=== PATIENT | male | born 1960 | race Caucasian/White ===

== ENCOUNTER 2018-01-25 12:47 | Outpatient (REF) | payer MEDICAID, SELFPAY ==
[2018-01-25 13:51] LABS: ALT 68 U/L (12-78); AST 37 U/L (15-37); Alkaline Phosphatase 76 U/L (46-116); Anion Gap 5.2 mmol/L (3-11); BUN 21 mg/dL (7-18); Bilirubin, Total 0.7 mg/dL (0.2-1.0); CO2 29.8 mmol/L (21.0-32.0); CREATININE 1.45 mg/dL (0.70-1.30); Calcium 8.6 mg/dL (8.5-10.1); Chloride 101 mmol/L (98-107); Cholesterol 206 mg/dL (50-200); Estimated GFR 50.16 (mL/min/1.73m2); Glucose 105 mg/dL (70-100); HDL Cholesterol 64 mg/dL (40-60); LDL CHOLESTEROL 126 mg/dL (<100); Magnesium 2.1 mg/dL (1.8-2.4); Potassium 4.7 mmol/L (3.5-5.1); Sodium 136 mmol/L (136-145); Triglyceride 107 mg/dL (30-150); Vitamin B12 695 pg/mL (193-986)
[2018-01-28 13:05] LABS: Hepatitis C Ab w Rflx HCV PCR Equivocal (NEGAT)
[2018-01-29 15:43] LABS: HCV RNA Detection Quantitative Undetected IU/mL (UNDECT)
== END 2018-01-25 13:07 ==
LOC: NCHCN 12:47
PROVIDERS: PCP Family Medicine; Visit Provider Family Medicine
DX: Z13.220 Encounter for screening for lipoid disorders (principal); Z11.59 Encounter for screening for other viral diseases; Z01.84 Encounter for antibody response examination; K21.9 Gastro-esophageal reflux disease without esophagitis; Z13.228 Encounter for screening for other metabolic disorders
CPT/HCPCS: 80053; 80061; 83721; 86803; 82607; 83735; 87522

== ENCOUNTER 2018-03-04 12:29 | Outpatient (REF) | payer MEDICAID, SELFPAY ==
[2018-03-04 19:00] LABS: PROTEIN 11.5 mg/dL
[2018-03-04 19:09] LABS: COMMENT (LAB VIEW ONLY) 104.51 mg/dL; Prot/Crea Ur Ratio 0.11
== END 2018-03-04 12:49 ==
LOC: NCHCN 12:29
PROVIDERS: PCP Family Medicine; Visit Provider Family Medicine
DX: N28.9 Disorder of kidney and ureter, unspecified (principal)
CPT/HCPCS: 82565; 84156

== ENCOUNTER 2019-04-11 13:45 | Outpatient (REF) | payer BC, SELFPAY ==
[2019-04-11 14:45] LABS: Anion Gap 9.1 mmol/L (3-11); BUN 18 mg/dL (7-18); CO2 27.9 mmol/L (21.0-32.0); CREATININE 1.28 mg/dL (0.70-1.30); Calcium 9.2 mg/dL (8.5-10.1); Chloride 102 mmol/L (98-107); Estimated GFR 57.72 (mL/min/1.73m2); Glucose 111 mg/dL (74-106); PROTEIN 16.3 mg/dL; Potassium 4.9 mmol/L (3.5-5.1); Sodium 139 mmol/L (136-145)
[2019-04-11 14:59] LABS: COMMENT (LAB VIEW ONLY) 105.62 mg/dL; Prot/Crea Ur Ratio 0.15
== END 2019-04-11 14:05 ==
LOC: NCHCN 13:45
PROVIDERS: PCP Family Medicine; Visit Provider Family Medicine
DX: Z00.00 Encounter for general adult medical examination without abnormal findings (principal); I10 Essential (primary) hypertension; R73.01 Impaired fasting glucose; N28.9 Disorder of kidney and ureter, unspecified
CPT/HCPCS: 80048; 82565; 84156

== ENCOUNTER 2020-05-06 20:25 | Outpatient (REF) | payer BC, SELFPAY ==
[2020-05-06 18:41] LABS: BUN 24 mg/dL (7-18); CREATININE 1.47 mg/dL (0.70-1.30); Calcium 9.1 mg/dL (8.5-10.1); Chloride 103 mmol/L (98-107); Estimated GFR 49.03 (mL/min/1.73m2); Glucose 95 mg/dL (74-106); Potassium 4.4 mmol/L (3.5-5.1); Sodium 138 mmol/L (136-145)
== END 2020-05-06 20:45 ==
LOC: NCHCN 20:25
PROVIDERS: PCP Family Medicine; Visit Provider Family Medicine
DX: I10 Essential (primary) hypertension (principal); N28.9 Disorder of kidney and ureter, unspecified
CPT/HCPCS: 80048

== ENCOUNTER 2021-07-25 10:23 | Outpatient (REF) | payer BC, SELFPAY ==
[2021-07-25 17:43] LABS: ALT 55 U/L (16-63); AST 31 U/L (15-37); Albumin 4.4 g/dL (3.4-5.0); Alkaline Phosphatase 86 U/L (46-116); Anion Gap 10.3 mmol/L (3-11); BUN 18 mg/dL (7-18); Bilirubin, Total 0.9 mg/dL (0.2-1.0); CO2 24.7 mmol/L (21.0-32.0); CREATININE 1.3 mg/dL (0.70-1.30); Calculated LDL 159 mg/dL (<100); Chloride 102 mmol/L (98-107); Cholesterol 254 mg/dL (<200); Estimated GFR 56.12 (mL/min/1.73m2); Glucose 106 mg/dL (74-106); HDL Cholesterol 58 mg/dL (40-60); Potassium 4.4 mmol/L (3.5-5.1); Sodium 137 mmol/L (136-145); Total Protein 7.7 g/dL (6.4-8.2); Triglyceride 189 mg/dL (<150)
[2021-07-26 09:46] LABS: PSA, Screening 1.3 ng/mL (0.0-4.5)
== END 2021-07-25 10:24 | disposition home or self-care (01) ==
LOC: NCHCN 10:23
PROVIDERS: PCP Family Medicine; Visit Provider Family Medicine
DX: Z00.00 Encounter for general adult medical examination without abnormal findings (principal); I10 Essential (primary) hypertension; N28.9 Disorder of kidney and ureter, unspecified; Z12.5 Encounter for screening for malignant neoplasm of prostate
CPT/HCPCS: 80053; 80061; 84153

== ENCOUNTER 2021-08-02 14:20 | Outpatient (CLI) | payer BC, SELFPAY ==
--- NOTE | 2021-08-02 | DI.RAD_ITS ---
Exam(s) XR KNEE RT 3V AP,LAT,MICHELLE EXAM: XR KNEE RT 3V AP,LAT,MICHELLE CLINICAL HISTORY: RT KNEE PAIN, SWELLING, ? OA. TECHNIQUE: 2D digital imaging was performed of the right knee. Three views obtained. AP, PA tunnel and lateral views were obtained. COMPARISON: No priors for comparison. FINDINGS: BONES: No acute fracture is present. No bony destructive lesion is seen. JOINTS: There is mild narrowing in the medial femoral tibial joint space. Periarticular spurring is seen in both medial lateral femoral tibial joints. There is a small suprapatellar joint effusion. SOFT TISSUE: Normal. IMPRESSION: Mild degenerative changes of the right knee. DATA REPOSITORY: RADIATION DOSE DELIVERED:
== END 2021-08-02 14:40 ==
PROVIDERS: PCP Family Medicine; Visit Provider Family Medicine
DX: M25.561 Pain in right knee (principal); M25.461 Effusion, right knee; M17.11 Unilateral primary osteoarthritis, right knee
CPT/HCPCS: 73562

== ENCOUNTER 2022-05-15 01:20 | Outpatient (CLI) | payer BC, SELFPAY ==
--- NOTE | 2022-05-15 09:45 | DI.MRI_ITS ---
Exam(s) MR LUMBAR SPINE WO EXAM: MR LUMBAR SPINE WO CLINICAL HISTORY: DJD, M47.896; 4 MOS WORSENING LBP AFFECTING FUNCTION,MINIMAL RESPONSE TO PT. TECHNIQUE: Multiplanar multisequence MRI of the Lumbar spine was performed. COMPARISON: No exams were available for comparison FINDINGS: Bones: The last intervertebral disc space is designated the L5/S1 level for the numbering purpose of this examination. The vertebral body heights are well maintained. Alignment is satisfactory. There are endplate degenerative signal changes at multiple levels of the lumbar spine, particularly at L5-S 1. There is a hemangioma or fatty rest in the T12 vertebral body. Cord: The conus tip ends at the L1 level. It is of normal size and signal intensity. T12-L1: No disc herniations or bulges are present. No central spinal canal or neural foraminal stenos is. L1-2: No disc herniations or bulges are present. No central spinal canal or neural foraminal stenosis . L2-3: No disc herniations or bulges are present. No central spinal canal or neural foraminal stenosis . L3-4: No disc herniations or bulges are present. Mild facet hypertrophy is present. No significant c entral spinal canal stenosis is seen. There is no neural foraminal stenosis. L4-5: There are degenerative changes of the facets and hypertrophy of the ligamentum flavum. There i s a mild diffuse disc bulge. There is mild narrowing of the central spinal canal. No significant ne ural foraminal stenosis is present. L5-S1: No focal disc herniation. There are degenerative changes of the facets. No significant centr al spinal canal stenosis is present. There is mild narrowing of the left neural foramen. No signifi cant right neural foraminal stenosis is present. Soft tissues: The visualized SI joints and sacrum are well maintained. The paraspinal soft tissues ar e unremarkable. IMPRESSION: Multilevel degenerative changes in the lumbar spine resulting in central spinal canal and neural fora neeru stenosis as described above. DATA REPOSITORY:
== END 2022-05-15 01:40 ==
LOC: DI 01:21
PROVIDERS: PCP Family Medicine; Visit Provider Family Medicine
DX: M47.816 Spondylosis without myelopathy or radiculopathy, lumbar region (principal); M48.061 Spinal stenosis, lumbar region without neurogenic claudication
CPT/HCPCS: 72148

== ENCOUNTER 2022-09-05 17:47 | Outpatient (REF) | payer BC, SELFPAY ==
[2022-09-05 15:36] LABS: HCT 43.9 % (40.0-50.0); HGB 14.8 g/dL (13.5-17.5); MCH 31.7 pg (27.0-33.0); MCHC 33.7 % (32.0-36.0); MCV 94 fL (80-95); MPV 10.5 fL (8.0-11.0); Platelet Count 238 10^3/uL (130-400); RBC 4.67 10^6/uL (4.36-5.78); RDW 12.9 % (11.8-14.1); RDW-SD 44.6 fL; WBC 6.65 10^3/uL (4.4-10.8)
[2022-09-05 16:15] LABS: ALT 57 U/L (16-63); AST 32 U/L (15-37); Albumin 4.1 g/dL (3.4-5.0); Alkaline Phosphatase 86 U/L (46-116); Anion Gap 7.5 mmol/L (3-11); BUN 18 mg/dL (7-18); Bilirubin, Total 0.7 mg/dL (0.2-1.0); CO2 27.5 mmol/L (21.0-32.0); CREATININE 1.1 mg/dL (0.70-1.30); Calcium 9.1 mg/dL (8.5-10.1); Calculated LDL 131 mg/dL (<100); Chloride 104 mmol/L (98-107); Cholesterol 221 mg/dL (<200); Glucose 121 mg/dL (74-106); HDL Cholesterol 65 mg/dL (40-60); Potassium 4.9 mmol/L (3.5-5.1); Sodium 139 mmol/L (136-145); Total Protein 7.3 g/dL (6.4-8.2); Triglyceride 127 mg/dL (<150)
== END 2022-09-05 17:48 | disposition home or self-care (01) ==
LOC: NCHCN 17:47
PROVIDERS: PCP Family Medicine; Visit Provider Family Medicine
DX: F10.10 Alcohol abuse, uncomplicated (principal); I10 Essential (primary) hypertension; E78.5 Hyperlipidemia, unspecified
CPT/HCPCS: 80053; 80061; 85027

== ENCOUNTER 2023-09-18 11:18 | Outpatient (REF) | payer BC, SELFPAY ==
[2023-09-18 15:41] LABS: Anion Gap 10.3 mmol/L (3-11); BUN 19 mg/dL (7-18); CO2 25.7 mmol/L (21.0-32.0); CREATININE 1.2 mg/dL (0.70-1.30); Chloride 104 mmol/L (98-107); Estimated GFR 67.95 (mL/min/1.73m2); Glucose 128 mg/dL (74-106); Potassium 4.6 mmol/L (3.5-5.1); Sodium 140 mmol/L (136-145)
== END 2023-09-18 11:19 | disposition home or self-care (01) ==
LOC: NCHCN 11:18
PROVIDERS: PCP Family Medicine; Visit Provider Student in an Organized Health Care Education/Training Program
DX: Z13.1 Encounter for screening for diabetes mellitus (principal); I10 Essential (primary) hypertension
CPT/HCPCS: 80048; 83036

== ENCOUNTER 2024-01-04 10:19 | Day surgery (SDC) | payer BC, SELFPAY ==
--- NOTE | 2024-01-03 21:05 | W.COLOREPORT ---
Date of service: 01/04/24 Time of Service: 14:00 Colonoscopy Report Date of procedure: 01/04/24 Pre-op diagnosis general: CRC screening Surgeon: Estefani Gusman Anesthesia Type: General:No Airway Complications: None Disposition: same day Prep: Miralax/Dulcolax Retraction Time: 15 Procedure Description: After informed consent was obtained, explaining risks of the procedure, including but not limits to: bleeding, infections, complications of anesthesia, perforations (which may require antibiotics and /or surgery and stay in the hospital), and abdominal pain/cramping. The patient was taken to the procedure room and placed in a left decubitous position. Monitors were applied and a time out was done. The patients name, date of , procedure, allergies to medications and metal in their body was reviewed. The patient was then sedated. Once sedated and comfortable a rectal exam was done. External exam was normal. Internal exam revealed a normal sphincter tone and no palpable masses. The prostate w/out masses. The previously lubricated Olympus scope was then introduced (see RN notes for scope number) and retrofelexed. Grade II internal hemorrhoids x2 columns were identified. The scope was then advanced to the cecum without difficulty. The TI and appendiceal orifice were identified. The scope was then slowly retracted over 15 minutes back into the rectum. Polyps: none. Diverticula: none . The mucosa is pink and healthy w/ a normal vascular pattern. The scope was removed, and the patient was woken up and taken back to Same day surgery in stable condition. The patient tolerated the procedure well and there were no immediate complications. Follow up: The patient should follow up in 10 years, unless they develop changes in bowel habits or other new gastrointestinal complaints. [facility] Bowel Prep Phoenix Bowel Prep Right Colon: 3 Left Colon: 3 Transverse Colon: 3 Total Score: 9
--- NOTE | 2024-01-03 21:06 | PDOC.DSDIS_ITS ---
Date of service: 01/04/24 Time of Service: 14:03 Discharge Plan Disposition Patient Disposition: Home Condition: Good Discharge Details Reason For Visit: CRC screening Attending Provider: Estefani Gusman Primary Care Provider: Parag Peña Home Meds and New Rx's Prescriptions: Continued atorvastatin 20 mg tablet 20 mg PO QHS omega 2-kpl-bru-fish oil [Fish Oil] 300-1,000 mg capsule 1 cap PO DAILY glucosamine HCl 1,500 mg tablet 1,500 mg PO DAILY Rx Instructions: administer with a meal meloxicam 15 mg tablet 15 mg PO DAILY Patient Comments: 01/04/24: pt reports not taking. FS RN olmesartan 20 mg tablet 20 mg PO HS tadalafil 10 mg tablet 10 mg PO DAILY PRN Rx Instructions: administer approximately 30min before sexual activity; do not use more than 1 dose per 24hrs vitamin B complex Capsule 1 cap PO DAILY cyclobenzaprine 10 mg tablet 10 mg PO HS PRN omeprazole 20 mg capsule,delayed release(DR/EC) 20 mg PO DAILY Patient Comments: TAKE ONE CAPSULE BY MOUTH EVERY DAY Discontinued polyethylene glycol 3350 17 gram/dose powder 238 g PO ONCE Qty: 238 0RF Rx Instructions: take per colonoscopy instructions bisacodyl [Dulcolax (bisacodyl)] 5 mg tablet,delayed release (DR/EC) 5 mg PO ONCE Qty: 4 0RF Rx Instructions: take per colonoscopy instructions Discharge Instructions Additional Instructions: [facility] Colonoscopy Post- Op Instructions Instructions for Everyone who is given Anesthesia: For your safety, please do the following for the next twenty-four (24) hours: *Do Not operate a motor vehicle (car, truck, motorcycle, etc.) *Do Not drink alcoholic beverages or use any recreational drugs for the first 24 hours or while taking pain medications. The medications in your body may have a reaction that can be dangerous. *Do Not make any important decisions or sign any important papers. Findings: Internal hemorrhoids. Make sure you are not straining to move your bowels. If you find you have problems with constipation on a regular basis, then we recommend you start a fiber product such as Metamucil daily. You want to make sure you are moving your bowels on a regular basis and not straining. Follow up: Repeat colonoscopy in 10 years time 1. No lifting over 20 pounds or strenuous activity for the first 24 hours after your procedure. After 24 hours there are no restrictions on your activity but you may feel fatigued for a few days. 2. After you arrive home you may have a light meal and return to your normal diet as you can tolerate it without feeling sick to your stomach. 3. You may have a bloated, gaseous feeling in your belly (abdomen) after a colonoscopy. Passing gas and belching will help. Walking or lying down on your left side with your knees flexed may relieve the discomfort. Call the office at [phone] (Office) or [phone] (Hospital) right away if you notice any of the following: a.Vomiting of blood or ?coffee ground stools?. b.Rectal bleeding 1Tbsp, blood clots or continuous bleeding. c.Severe belly (abdominal) pain. d.A hard distended belly (abdomen) and an inability to pass gas. 4. Please don?t expect to have a normal BM (bowel movement) for 2-3 days after your procedure. 5. If there are questions regarding the findings of your procedure, please contact your doctor 6. If you are unable to contact your doctor with a problem, contact the hospital at [phone]. 7. Continue all your regular medications unless directed otherwise. I understand the above instructions and have no questions. Signature of Patient or Adult Escort Name of Responsible Adult Escort Signature of Nurse Date/Time Stand Alone Forms: Anesthesia Discharge , Kathryn Nation (DSU) Activity:: see above Diet:: see above Discharge Orders Discharge Orders: Discharge Order (Routine); Ordered 01/04/24 Ordered By: Estefani Gusman DS: Diagnosis Discharge Diagnosis (1) Encounter for screening colonoscopy: Status: Acute Asessment and Plan: The patient is seen and examined after their colonoscopy.? The patient has been able to pass gas.? They are not having abdominal pain.? They have been able to tolerate liquids and a snack.? They do not have any nausea or vomiting.? They are not having any chest pain or shortness of breath.??? They are not having any rectal bleeding. Their vital signs have been stable-see nursing notes. We discussed findings during their colonoscopy, and any biopsies that were done/polyps that were removed. The patient will be sent a letter with any biopsy results, and when to repeat the colonoscopy.-see discharge instructions. Patient was given explicit instructions to follow-up regarding colonoscopy-refer to discharge instructions.? We reviewed resumption of medications. Patient verbalized understanding and discharged in stable and satisfactory condition- See nursing notes. (2) Alcohol abuse: (3) Essential hypertension: (4) Hyperlipidemia: (5) Obesity: (6) GERD without esophagitis: (7) Internal hemorrhoid: Status: Acute
[2024-01-04 10:45] VITALS: BP 141/88; PULSE 63; RESP 16; TEMP 36; O2SAT 98
[2024-01-04] MEDS: Lactated Ringers 1,000 ML 80 ML IV (11:01)
--- NOTE | 2024-01-04 11:58 | W.ANESPRE ---
General Info Date of Service Date Performed: 01/04/24 Height: 5 ft 10.5 in Weight: 128.6 kg Body Mass Index (BMI): 40.1 Surgical Procedure: Operation Date: 01/04/24 11:35 Proposed Procedure Side Surgeon braden Gusman, DO Meds Allergies and Home Medications Allergies Allergy/AdvReac Type Severity Reaction Status Date / Time No Known Allergies Allergy Verified 01/04/24 10:38 Home Medication ?Medication ?Instructions ?Recorded atorvastatin 20 mg tablet 20 mg PO QHS 11/28/23 glucosamine HCl 1,500 mg tablet 1,500 mg PO DAILY 11/28/23 meloxicam 15 mg tablet 15 mg PO DAILY 11/28/23 olmesartan 20 mg tablet 20 mg PO HS 11/28/23 omega 9-frb-qaj-fish oil 300 1 cap PO DAILY 11/28/23 mg-1,000 mg capsule (Fish Oil) tadalafil 10 mg tablet 10 mg PO DAILY PRN 11/28/23 vitamin B complex 1 cap PO DAILY 11/28/23 cyclobenzaprine 10 mg tablet 10 mg PO HS PRN 12/17/23 omeprazole 20 mg capsule,delayed 20 mg PO DAILY 01/02/24 release Current Visit Medications: Current Medications Generic Name Dose Route Start Last Admin Trade Name Freq PRN Reason Stop Dose Admin Hyoscyamine Sulfate 0.125 mg 01/04/24 00:20 Hyoscyamine 0.125 Mg Sl/Oral/Chew SL 02/03/24 00:19 DIRECTED PRN Ringer's Solution 1,000 mls @ 80 mls/hr 01/04/24 06:00 01/04/24 11:01 IV 01/04/24 23:59 80 mls/hr INFUSION ROLANDO Administration IV Miscellaneous Supplies 1 each 01/04/24 06:00 Iv Access IV 01/04/24 23:59 DIRECTED ROLANDO Ondansetron HCl 4 mg 01/04/24 00:20 Ondansetron 4 Mg/2 Ml Vial IVP 02/03/24 00:19 Q4H PRN PRN Nausea / Vomiting Sodium Chloride 0 ml 01/04/24 06:00 Normal Saline Flush 10 Ml Syr IV 01/04/24 23:59 PRN PRN Sodium Chloride 0 ml 01/04/24 06:00 Normal Saline 10 Ml Vial IJ 01/04/24 23:59 DIRECTED PRN Sterile Water 0 ml 01/04/24 06:00 Water,Injection,Sterile 10 Ml Vial IJ 01/04/24 23:59 DIRECTED PRN PFSH Active Problems Active Problems: Problem Status Onset Code Encounter for screening colonoscopy Acute Z12.11 Renal insufficiency Chronic N28.9 Medical History Medical History Pain, joint, knee, right Allergy to food Lumbar spondylosis GERD without esophagitis Essential hypertension Hearing loss in left ear Alcohol intake above recommended sensible limits Alcohol abuse Erectile dysfunction Obesity Hyperlipidemia Tobacco Smoking/Tobacco Use Status: Never Alcohol Alcohol Intake: current Alcohol intake frequency: 3 or more drinks per day Alcohol type: beer Substance Use Substance use: Never Substance use type: does not use Vital Signs and Lab Results Vital Signs Most Recent Vital Signs in EMR: Most Recent Vital Signs Temp Pulse Resp BP Pulse Ox 36 C L 63 16 141/88 H 98 01/04/24 10:45 01/04/24 10:45 01/04/24 10:45 01/04/24 10:45 01/04/24 10:45 Lab Results Blood Type / Crossmatch: No Data to Display Complete Blood Count: No Data to Display Complete Metabolic Panel: No Data to Display Liver Function Panel: No Data to Display Coagulation Panel: No Data to Display Cardiac Panel: No Data to Display Arterial Blood Gas: No Data to Display Venous Blood Gas: No Data to Display Pancreas Panel: No Data to Display Thyroid Panel: No Data to Display Infectious Disease: No Data to Display Blood Cultures: No Data to Display Toxicology Panel: No Data to Display Anesthesia Assessment and Plan Anesthesia History Personal History: No History of Anesthesia Complications Family History: No Family History of Anesthesia Complications Exercise Tolerance Exercise Tolerance: Metabolic Equivalents>4 Pertinent Negatives Pertinent Negatives: No Symptoms of GERD, No Major Cardiovascular Symptoms or Complaints, No Major Pulmonary Symptoms or Complaints and No History of CVA/TIA Cardiac & Pulmonary Exam Cardiac Exam: Normal S1/S2 Heart Sounds Pulmonary Exam: Clear Bilateral Breath Sounds Implantable Cardiac Device Does patient have a Pacemaker or an ICD?: No Airway Exam Known Difficult Airway: No Mallampati Class: 1 Mouth Opening: Normal (> 3cm) Thyromental Distance: Greater than 3 cm Neck Range of Motion: Full ROM Neck Circumference: Normal Teeth Condition: Normal Dentition ASA Classification ASA Score: ASA 3 Emergency Case?: No NPO Status NPO Status: NPO Clears >2 hours, Solids >8 hours Anesthesia Plan Resuscitation Status: Full Code Anesthesia Technique: General Anesthesia Airway Planned: Natural Airway Monitors Used: Standard Monitors
[2024-01-04 11:59] VITALS: BMI 40.1
[2024-01-04 13:17] VITALS: BP 108/72; PULSE 88; RESP 16; TEMP 36.2; O2SAT 94
--- NOTE | 2024-01-04 13:43 | W.ANESPOSTOP ---
Postoperative Evaluation Date, Time and Location Date Performed: 01/04/24 Time Performed: 13:35 Patient Location: Day Surgery Unit Vital Signs Most Recent Imported Vital Signs: Most Recent Vital Signs Temp Pulse Resp BP Pulse Ox 36.2 C L 88 16 108/72 94 01/04/24 13:17 01/04/24 13:17 01/04/24 13:17 01/04/24 13:17 01/04/24 13:17 Pain Score Most Recent Pain Score: Most Recent Pain Score Pain Level 0 01/04/24 13:17 Assessment Mental Status: Awake (Alert & Oriented to Patient Baseline) Airway and Respiratory Function: Patent airway with normal (patient baseline) respiratory exam Cardiovascular Function: Hemodynamically Stable Hydration Status: Adequately Hydrated Nausea & Vomiting: No Nausea or Vomiting Pain: Pt. Denies Any Pain Peripheral Nerve Block: Patient did not receive a nerve block
[2024-01-04 13:52] VITALS: BP 121/84; PULSE 70; RESP 16; TEMP 36.2; O2SAT 97
== END 2024-01-04 14:17 | disposition home or self-care (01) ==
LOC: SUR 10:20
PROVIDERS: PCP Family Medicine; Visit Provider Surgery
PROC: 0DJD8ZZ Inspection of Lower Intestinal Tract, Via Natural or Artificial Opening Endoscopic (ICD-10-PCS; CPT 45378; principal; 2024-01-04 11:30)
DX: Z12.11 Encounter for screening for malignant neoplasm of colon (principal); K64.8 Other hemorrhoids
CPT/HCPCS: 45378; J2704

== ENCOUNTER 2024-02-06 08:28 | Emergency (ER) | payer BC, SELFPAY ==
[2024-02-06] VITALS (38 sets, daily range): BP systolic 137–193; BP diastolic 78–101; PULSE 85–109; RESP 10–32; TEMP 36.8–37.8; O2SAT 93–98
--- NOTE | 2024-02-06 08:50 | W.ED.GENAD ---
Discharge Plan Disposition Patient Disposition: Home Condition: Stable Discharge Details Clinical Impression: Diarrhea Primary Care Provider: Parag Peña ED Provider: Neri Kramer Home Meds and New Rx's Prescriptions: New azithromycin 500 mg tablet 500 mg PO DAILY 5 Days Qty: 5 0RF Continued atorvastatin 20 mg tablet 20 mg PO QHS omega 7-ngg-ydd-fish oil [Fish Oil] 300-1,000 mg capsule 1 cap PO DAILY glucosamine HCl 1,500 mg tablet 1,500 mg PO DAILY Rx Instructions: administer with a meal meloxicam 15 mg tablet 15 mg PO DAILY Patient Comments: 01/04/24: pt reports not taking. FS RN olmesartan 20 mg tablet 20 mg PO HS tadalafil 10 mg tablet 10 mg PO DAILY PRN Rx Instructions: administer approximately 30min before sexual activity; do not use more than 1 dose per 24hrs vitamin B complex Capsule 1 cap PO DAILY cyclobenzaprine 10 mg tablet 10 mg PO HS PRN omeprazole 20 mg capsule,delayed release(DR/EC) 20 mg PO DAILY Patient Comments: TAKE ONE CAPSULE BY MOUTH EVERY DAY Discharge Instructions Instructions: Azithromycin (Systemic), Diarrhea, Adult ED Additional Instructions: You were seen in the ED for your ongoing diarrhea- your labs are reassuring for no sepsis. You had mildly low magnesium, which is expected from GI losses of diarrhea. Please stay well hydrated. I am sending you an empiric antibiotic, azithromycin for infectious diarrhea. Your C. diff study is negative. The CT shows possible underdistention or completely empty colon vs what's called onela-colitis which can be a marker of inflammatory bowel disease or ulcerative colitis, which if you had- should've been picked up on your recent colonoscopy. You have elevated inflammatory markers of CRP/ESR. I think this is all due to generalized diarrhea and not these possible underlying conditions- but I want you to have your labs of CRP/ESR repeated after your antibiotic treatment- ordered as a outpatient by your PCP- please contact their office to have them schedule these lab draws in about a week, and talk to your PCP for possible need for repeat colonoscopy. Please return to ED for any inability to tolerate PO intake, dizziness, bloody diarrhea, severe increasing abdominal pain. Referrals: Parag Peña [Primary Care Provider] - HPI General Date/Time Provider Initiated Documentation: 02/06/24 08:45. HPI Narrative: 63 year-old male presents to ED today by POV/ambulating with a chief complaint of diarrhea every 2 hours for over a week, occasional mild nausea without vomiting, and sudden attacks of lower abdominal severe cramping. Quality described as cramping, liquid diarrhea, no radiation to recent antibiotic use, fever, vomiting, black/bloody diarrhea, cough, patient endorses less urine than usual- feels dehydrated. Severity is described as 8/10. Palliating factors include nothing. Provoking factors include nothing specific, has not caught any GI symptoms. Events leading up to the incident/Associated Symptoms: Patient had a colonoscopy a month ago with normal findings. Patient not anticoagulated. Related Data Home Medications ?Medication ?Instructions ?Recorded ?Confirmed atorvastatin 20 mg tablet 20 mg PO QHS 11/28/23 02/06/24 glucosamine HCl 1,500 mg tablet 1,500 mg PO DAILY 11/28/23 02/06/24 meloxicam 15 mg tablet 15 mg PO DAILY 11/28/23 02/06/24 olmesartan 20 mg tablet 20 mg PO HS 11/28/23 02/06/24 omega 3-peu-fjh-fish oil 300 1 cap PO DAILY 11/28/23 02/06/24 mg-1,000 mg capsule (Fish Oil) tadalafil 10 mg tablet 10 mg PO DAILY PRN 11/28/23 02/06/24 vitamin B complex 1 cap PO DAILY 11/28/23 02/06/24 cyclobenzaprine 10 mg tablet 10 mg PO HS PRN 12/17/23 02/06/24 omeprazole 20 mg capsule,delayed 20 mg PO DAILY 01/02/24 02/06/24 release azithromycin 500 mg tablet 500 mg PO DAILY 5 days #5 tabs 02/06/24 Previous Rx's ?Medication ?Instructions ?Recorded azithromycin 500 mg tablet 500 mg PO DAILY 5 days #5 tabs 02/06/24 Allergies Allergy/AdvReac Type Severity Reaction Status Date / Time No Known Allergies Allergy Verified 02/06/24 08:33 General Stated Complaint: Nausea/Vomit/Diar [place]RA[place]: 3 Review of Systems All systems reviewed & are unremarkable except as noted in HPI and below Exam Narrative Exam Narrative: GENERAL APPEARANCE: Well-nourished, non-toxic, awake and alert, atraumatic, no acute distress. SKIN: Warm, pink, dry, intact, without rashes/lesions/ulcerations. HEAD: Normocephalic, atraumatic, normal hair distribution for gender/age. EYES: Normal conjunctiva, no exudates on lids/lashes. ENT: Nares patent, no circumoral cyanosis, no facial swelling NECK: Supple, trachea midline, painless cervical ROM. LUNGS/CHEST: Lungs CTA bilaterally, non-labored respirations, normal A/P diameter, symmetrical expansion, no chest wall deformity HEART (CV/PV): Regular rate and rhythm without murmur, no peripheral edema, no JVD. ABDOMEN: Soft, non-distended, no guarding. MSK: Normal ROM, no swelling/deformity to bilateral UEs or LEs, moving all extremities without weakness, no cyanosis, spine midline without tenderness, normal curvature. NEURO: Mental Status AAOx4 - alert to person, place, time, events No facial droop, no forehead involvement. Motor: No focal weakness - strength 5/5 in bilateral UEs and LEs, proximal and distal, symmetric. Sensory: sensation intact to light touch globally. Gait normal: patient ambulated without ataxia into ED room. PSYCH: euthymic, cooperative, pleasant, appropriate speech Course Vital Signs Vital signs: Vital Signs Temperature 36.8 C 02/06/24 08:34 Pulse 102 H 02/06/24 08:34 Respiratory Rate 16 02/06/24 08:34 Blood Pressure 137/80 02/06/24 08:34 Pulse Oximetry 96 02/06/24 08:34 Temperature 36.8 C 02/06/24 08:37 Temperature Source Temporal Artery Scan 02/06/24 08:37 Pulse 98 H 02/06/24 08:37 Respiratory Rate 16 02/06/24 08:37 Respiratory Effort Normal, Non-Labored 02/06/24 08:37 Blood Pressure 137/80 02/06/24 08:37 Blood Pressure Position Sitting 02/06/24 08:37 Pulse Oximetry 96 02/06/24 08:37 Oxygen Delivery Method Room Air 02/06/24 08:37 Oxygen Flow Rate 0 02/06/24 08:34 Pain Level 6 02/06/24 08:37 Medical Decision Making This dictation utilizes [id number] dictation software and may contain unedited grammatical errors. 63 year-old male presents to ED today by POV/ambulating with a chief complaint of diarrhea every 2 hours for over a week, occasional mild nausea without vomiting, and sudden attacks of lower abdominal severe cramping. Quality described as cramping, liquid diarrhea, no radiation to recent antibiotic use, fever, vomiting, black/bloody diarrhea, cough, patient endorses less urine than usual- feels dehydrated. Severity is described as 8/10. Palliating factors include nothing. Provoking factors include nothing specific, has not caught any GI symptoms. Events leading up to the incident/Associated Symptoms: Patient had a colonoscopy a month ago with normal findings. Patients' medical history: Hypertension, GERD, alcohol use disorder, obesity, hyperlipidemia, internal hemorrhoid, renal insufficiency. Family and social history: Denies recent heavy drinking, no recent travel or sick contacts. Pertinent exam findings / vital signs include left lower quadrant abdominal tenderness, benign cardiopulmonary status, neuro intact. Differential / pathologies of concern include colitis, enteritis, diverticulitis, infectious diarrhea, C. difficile. Diagnostic studies of: -CBC, CMP, lactate, lipase, magnesium, urinalysis, stool studies of C. difficile PCR, lacto ferritin, calprotectin, fecal bacterial Gram stain, ova and parasite study, CT abdomen pelvis w/ contrast. *Added CRP/ESR for oneal-colitis possible appearance on CT. -CBC mildly elevated at 12, no anemia -CMP shows mild hyponatremia, mild elev of SCr 1.4 -Magnesium 1.5, giving 1gm IV -CRP 5.9 elevated, ESR 23 -UA shows mild proteinuria -Lipase WNL -C. difficile negative -Other stool studies pending at discharge. -CT shows question of collapsed colon from evacuation vs oneal-colitis, my suspicion for IBD is low considering patient had a negative colonoscopy a month ago. I plan to treat empirically for infectious diarrhea, with close follow-up for repeat labs and evaluation of possible need for repeat colonoscopy deferred to PCP or surgical office visit. Interventions of: -1L oral pedialyte, 1gm IV magnesium, Empiric Rx of azithromycin for infectious diarrhea. ED Course/Assessment/Plan: 63-year-old male presents with 2 weeks of acute severe diarrhea and intermittent cramping, he has reassuring labs for no sign of severe infection, mildly low magnesium which I repleted, he had a recent colonoscopy which had negative findings, he does have mildly elevated inflammatory markers likely in the setting of acute infectious diarrhea, C. difficile is negative, other stool studies are pending but I think it is reasonable to treat for empiric infectious diarrhea with azithromycin and have the patient repeat inflammatory markers as an outpatient, I stressed strict return criteria for any failure to improve, I do recommend he continue Imodium and obtain [id number] repletion of good source of multivitamins, Pedialyte, especially magnesium, plan was discussed with general surgery Dr. Mi who is in agreement with this plan. Findings not consistent with inflammatory bowel disease like Crohn's or ulcerative colitis, patient had a recent colonoscopy I do not think he developed this condition within the last month, not consistent with sepsis or inability to tolerate p.o. intake. Disposition of Diarrhea. Patient verbalized understanding of the plan and return to ED criteria and engaged in shared decision making. Medical Records Medical records reviewed: Yes I reviewed the patient's medical records. Imaging Data Radiologic Study: Attestation: I personally reviewed and interpreted this imaging study as follows: Imaging: CT Scan Radiologist's impression: EXAM: CT ABDOMEN PELVIS W CLINICAL HISTORY: diarrhea, llq tenderness. TECHNIQUE: Imaging Protocol: Axial computed tomography images with coronal and sagittal reformatted images were created and reviewed CONTRAST MATERIAL: Intravenous: Omnipaque-350 100cc Oral: None COMPARISON: No exams were available for comparison FINDINGS: VISUALIZED LUNG BASES: No nodules nor pleural effusions evident. ABDOMEN: There is no ascites. LIVER: There are no focal hepatic lesions evident. No dilated intrahepatic ducts. GALLBLADDER/BILIARY: No obvious gallbladder pathology. CBD is not dilated. PANCREAS: No evidence of pancreatic mass nor dilatation of the pancreatic duct. SPLEEN: Spleen is not enlarged. No obvious intrasplenic lesions. Splenic and portal veins are patent. ADRENALS: There are no significant adrenal masses. KIDNEYS:No cysts evident. No solid renal masses. No calculi nor hydronephrosis.. ABDOMINAL AORTA: Abdominal aorta is not enlarged. LYMPH NODES:There is no retroperitoneal nor paraaortic adenopathy. ABDOMINAL WALL: No evidence of significant anterior abdominal wall nor significant inguinal hernias. GI: There is no evidence of small bowel obstruction, free air, nor abscess. There is no significant diverticular disease in the colon. Colon is collapsed but exhibits a subtle pancolitis pattern. Appendix appears unremarkable PELVIS: LYMPH NODES: There is no intrapelvic nor inguinal adenopathy. REPRODUCTIVE: Mildly enlarged prostate. Seminal vesicles unremarkable. URINARY BLADDER: Mild uniform thickening of the bladder wall. No discrete lesions. No radiopaque calculi in bladder lumen. The pelvic ureters are not dilated. OSSEOUS: No fractures and no significant osseous lesions. Multilevel calcification in the anterior longitudinal ligament in the visualized thoracic spine noted. No compression fractures evident in the field of view which is T9 and below. No significant osseous lesions. IMPRESSION: 1. There appears to be a oneal colitis pattern. Please note that the colon is collapsed and this can sometimes render appearance similar to colitis. 2. There is no significant sigmoid diverticular disease in this patient has apparently is left lower quadrant pain. 3. No evidence of acute appendicitis. 4. No other obvious findings Lab Data Lab results reviewed: Yes I reviewed the patient's lab results. Labs: 02/06/24 11:45 Stool Stool Occult Blood (SOL) - Pending 02/06/24 10:15 Stool Lactoferrin Latex Agglutination - Final Laboratory Tests Range/Units 02/06/24 02/06/24 09:10 10:15 WBC (4.4-10.8) 10^3/uL 12.01 H RBC (4.36-5.78) 10^6/uL 4.76 Hgb (13.5-17.5) g/dL 15.3 Hct (40.0-50.0) % 45.3 MCV (80-95) fL 95 MCH (27.0-33.0) pg 32.1 MCHC (32.0-36.0) % 33.8 RDW (11.8-14.1) % 12.9 Plt Count (130-400) 10^3/uL 201 MPV (8.0-11.0) fL 9.7 Immature Gran % % 0.5 Neutrophils % % 84.1 Lymphocytes % % 8.2 Monocytes % % 6.2 Eosinophils % % 0.7 Basophils % % 0.3 Nucleated RBC % (0.0-0.3) % 0.0 Absolute Neutrophils (1.2-6.7) 10^3/uL 10.10 H Absolute Lymphocytes (1.2-3.4) 10^3/uL 0.98 L Absolute Monocytes (0.1-0.8) 10^3/uL 0.74 Absolute Eosinophils (0.0-0.7) 10^3/uL 0.08 Absolute Basophils (0.0-0.2) 10^3/uL 0.04 ESR (0-20) mm/hr 23 H VBG Lactate (0.6-1.4) mmol/L 1.1 Sodium (136-145) mmol/L 134 L Potassium (3.5-5.1) mmol/L 4.8 Chloride (98-107) mmol/L 99 Carbon Dioxide (21.0-32.0) mmol/L 23.2 Anion Gap (3-11) mmol/L 11.8 H BUN (7-18) mg/dL 12 Creatinine (0.70-1.30) mg/dL 1.4 H Est GFR (CKD-EPI 2020) (mL/min/1.73m2) 56.48 Glucose (74-106) mg/dL 140 H Calcium (8.5-10.1) mg/dL 8.9 Magnesium (1.8-2.4) mg/dL 1.5 L Total Bilirubin (0.2-1.0) mg/dL 0.57 AST (15-37) U/L 31 ALT (16-63) U/L 44 Alkaline Phosphatase (46-116) U/L 87 C-Reactive Protein (<or=0.5) mg/dL 5.90 H Total Protein (6.4-8.2) g/dL 7.8 Albumin (3.4-5.0) g/dL 3.7 Lipase (16-77) U/L 34 Urine Color (Yellow) Yellow Urine Clarity (Clear) Clear Urine pH (5-8) 6.0 Ur Specific [place] (1.005-1.025) 1.020 Urine Protein (Neg-Trace) mg/dL 30 H Urine Ketones (Negative) mg/dL Negative Urine Blood (Negative) Negative Urine Nitrite (Negative) Negative Urine Bilirubin (Negative) Negative Urine Urobilinogen (Up to 0.2) mg/dL 0.2 Ur Leukocyte Esterase (Negative) Negative Urine RBC (0-2) HPF 0-2 Urine WBC (0-5) HPF 0-2 Ur Epithelial Cells (Negative) HPF Rare Urine Crystals (Negative) HPF Negative Urine Bacteria (Negative) HPF Few Urine Casts (Negative) LPF Negative Urine Mucus (Negative) Moderate Ur Culture Indicated? No Urine Glucose (Negative) mg/dL Negative Stl C.difficile Tox PCR (Negative) Negative Quality:SDOH Health Related Social Needs: No Data to Display PFSH All Active Problems (Updated 02/06/24 @ 12:19 by COURTNEY Aguilar) Diarrhea (Acute) Internal hemorrhoid (Acute) Encounter for screening colonoscopy (Acute) Renal insufficiency (Chronic) Medical History (Updated 02/06/24 @ 12:19 by COURTNEY Aguilar) Pain, joint, knee, right Allergy to food Lumbar spondylosis GERD without esophagitis Essential hypertension Hearing loss in left ear Alcohol intake above recommended sensible limits Alcohol abuse Erectile dysfunction Obesity Hyperlipidemia Surgical History (Updated 01/07/24 @ 07:59 by Minnie Forte) History of colonoscopy (~12/2023) Social History Smoking/Tobacco Use Status: Never Smoking risk assessment performed?: Yes Alcohol Intake: current Alcohol Intake frequency: 3 or more drinks per day Alcohol type: beer Drug use: Never Substance use type: does not use Housing: house Do you feel safe at home: Yes Do you feel safe in your relationship?: Yes
--- NOTE | 2024-02-06 09:00 | DI.CT_ITS ---
Exam(s) CT ABDOMEN PELVIS W EXAM: CT ABDOMEN PELVIS W CLINICAL HISTORY: diarrhea, llq tenderness. TECHNIQUE: Imaging Protocol: Axial computed tomography images with coronal and sagittal reformatted images were created and reviewed CONTRAST MATERIAL: Intravenous: Omnipaque-350 100cc Oral: None COMPARISON: No exams were available for comparison FINDINGS: VISUALIZED LUNG BASES: No nodules nor pleural effusions evident. ABDOMEN: There is no ascites. LIVER: There are no focal hepatic lesions evident. No dilated intrahepatic ducts. GALLBLADDER/BILIARY: No obvious gallbladder pathology. CBD is not dilated. PANCREAS: No evidence of pancreatic mass nor dilatation of the pancreatic duct. SPLEEN: Spleen is not enlarged. No obvious intrasplenic lesions. Splenic and portal veins are paten t. ADRENALS: There are no significant adrenal masses. KIDNEYS:No cysts evident. No solid renal masses. No calculi nor hydronephrosis.. ABDOMINAL AORTA: Abdominal aorta is not enlarged. LYMPH NODES:There is no retroperitoneal nor paraaortic adenopathy. ABDOMINAL WALL: No evidence of significant anterior abdominal wall nor significant inguinal hernias. GI: There is no evidence of small bowel obstruction, free air, nor abscess. There is no significant diverticular disease in the colon. Colon is collapsed but exhibits a subtle pancolitis pattern. Appendix appears unremarkable PELVIS: LYMPH NODES: There is no intrapelvic nor inguinal adenopathy. REPRODUCTIVE: Mildly enlarged prostate. Seminal vesicles unremarkable. URINARY BLADDER: Mild uniform thickening of the bladder wall. No discrete lesions. No radiopaque ca lculi in bladder lumen. The pelvic ureters are not dilated. OSSEOUS: No fractures and no significant osseous lesions. Multilevel calcification in the anterior longitudinal ligament in the visualized thoracic spine noted . No compression fractures evident in the field of view which is T9 and below. No significant osseo us lesions. IMPRESSION: 1. There appears to be a oneal colitis pattern. Please note that the colon is collapsed and this can s ometimes render appearance similar to colitis. 2. There is no significant sigmoid diverticular disease in this patient has apparently is left lower quadrant pain. 3. No evidence of acute appendicitis. 4. No other obvious findings Report called by myself to ER provider 02/06/2024 at 11:12 a.m.z RADIATION DOSE DELIVERED: 794.47mGy.cm Total DLP DATA REPOSITORY: All CT scans at this facility are submitted to the National Radiology Data Registry (NRDR) Dose Index Registry (DIR) with the [employer] (A[employer]). RADIATION OPTIMIZATION: All CT scans at this facility use at least one of these dose optimization te chniques: automated exposure control; mA and/or kV adjustment per patient size (includes targeted exa ms where dose is matched to clinical indication); or iterative reconstruction.
[2024-02-06 09:16] LABS: Lactate 1.1 mmol/L (0.6-1.4)
[2024-02-06 09:17] LABS: Abs Immature Grans 0.06 10^3/uL (0.0-0.06); Absolute Basophil Count 0.04 10^3/uL (0.0-0.2); Absolute Eosinophil Count 0.08 10^3/uL (0.0-0.7); Absolute Lymphocyte Count 0.98 10^3/uL (1.2-3.4); Absolute Monocyte Count 0.74 10^3/uL (0.1-0.8); Basophils % 0.3 %; Eosinophils % 0.7 %; HCT 45.3 % (40.0-50.0); HGB 15.3 g/dL (13.5-17.5); Immature Grans % 0.5 %; Lymphocytes % 8.2 %; MCH 32.1 pg (27.0-33.0); MCHC 33.8 % (32.0-36.0); MCV 95 fL (80-95); MPV 9.7 fL (8.0-11.0); Monocytes % 6.2 %; Neutrophils % 84.1 %; Platelet Count 201 10^3/uL (130-400); RBC 4.76 10^6/uL (4.36-5.78); RDW 12.9 % (11.8-14.1); RDW-SD 45.6 fL; WBC 12.01 10^3/uL (4.4-10.8)
[2024-02-06 09:41] LABS: ALT 44 U/L (16-63); AST 31 U/L (15-37); Albumin 3.7 g/dL (3.4-5.0); Alkaline Phosphatase 87 U/L (46-116); Anion Gap 11.8 mmol/L (3-11); BUN 12 mg/dL (7-18); Bilirubin, Total 0.57 mg/dL (0.2-1.0); CO2 23.2 mmol/L (21.0-32.0); CREATININE 1.4 mg/dL (0.70-1.30); Calcium 8.9 mg/dL (8.5-10.1); Chloride 99 mmol/L (98-107); Estimated GFR 56.48 (mL/min/1.73m2); Glucose 140 mg/dL (74-106); Lipase 34 U/L (16-77); Magnesium 1.5 mg/dL (1.8-2.4); Potassium 4.8 mmol/L (3.5-5.1); Sodium 134 mmol/L (136-145); Total Protein 7.8 g/dL (6.4-8.2)
[2024-02-06] MEDS: Electrolyte SOLUTION,ORAL 1000 ML BTL PO (10:17)
[2024-02-06 10:24] LABS: Bilirubin Negative (Negative); Blood Negative (Negative); Clarity Clear (Clear); Glucose Negative (Negative); Ketones Negative (Negative); Leukocyte Esterase Negative (Negative); Nitrite Negative (Negative); Urobilinogen 0.2 mg/dL (Up to 0.2)
[2024-02-06 10:31] LABS: Bacteria Few HPF (Negative); C & S Indicated? No; Casts Negative LPF (Negative); Crystals Negative HPF (Negative); Epithelial Cells Rare HPF (Negative); Mucus Moderate (Negative); RBC 0-2 HPF (0-2); WBC 0-2 HPF (0-5)
[2024-02-06] MEDS: Normal Saline - Diluent 50 ML VIAL IJ (10:42)
[2024-02-06] MEDS: Omnipaque 350 MG/ML 100 ML BTL IJ (10:43)
[2024-02-06] MEDS: MAGNESIUM SULFATE 1 GM/100 ML BAG IV_INF (10:54)
[2024-02-06 11:27] LABS: C Diff PCR Negative (Negative)
[2024-02-06 11:51] LABS: ESR 23 mm/hr (0-20)
[2024-02-06] MEDS: Acetaminophen 500 MG TAB 1000 MG PO (13:25)
[2024-02-07 11:05] LABS: Campylobacter PCR Negative (Negative); Salmonella PCR Positive (Negative); Shiga Toxin PCR Negative (Negative); Shigella/Enteroinvasive Ecoli Negative (Negative)
--- NOTE | 2024-02-08 16:10 | NUR.NOTE ---
Nursing Note: Called PT PCP office to verify follow up early next week. PCP office informed ED recieved call from department of health instructing PT stool sample positive for salmonella. Nursing staff reports PT has appt on of this month but will attempt to move appt up sooner. [place], ED
[2024-02-09 17:33] LABS: Calprotectin 2580 mcg/g
== END 2024-02-06 13:25 | disposition home or self-care (01) ==
PROVIDERS: Emergency Provider Physician Assistant; PCP Family Medicine
DX: R19.7 Diarrhea, unspecified (principal); I10 Essential (primary) hypertension; E78.5 Hyperlipidemia, unspecified
CPT/HCPCS: 80053; 83690; 85652; 87493; 87505; 96365; 99285; 74177; 81003; 81015; 82270; 83605; 83630; 83735; 83993; 85025; 86140; 87177; J3475; J3490

== ENCOUNTER 2024-09-30 11:56 | Outpatient (REF) | payer OTHER, SELFPAY ==
[2024-09-30 13:51] LABS: Anion Gap 6.9 mmol/L (3-11); BUN 16 mg/dL (7-18); CO2 27.1 mmol/L (21.0-32.0); CREATININE 0.9 mg/dL (0.70-1.30); Calcium 9.5 mg/dL (8.5-10.1); Calculated LDL 106 mg/dL (<100); Chloride 100 mmol/L (98-107); Cholesterol 189 mg/dL (<200); Estimated GFR 95.37 (mL/min/1.73m2); Glucose 125 mg/dL (74-106); HDL Cholesterol 66 mg/dL (>or=40); Potassium 4.6 mmol/L (3.5-5.1); Sodium 134 mmol/L (136-145); Triglyceride 86 mg/dL (<150); Vitamin B12 659 pg/mL (193-986)
[2024-09-30 13:53] LABS: Folate > 20.0 ng/mL (8.6-20.0)
== END 2024-09-30 11:57 | disposition home or self-care (01) ==
LOC: NCHCN 11:56
PROVIDERS: PCP Student in an Organized Health Care Education/Training Program; Visit Provider Student in an Organized Health Care Education/Training Program
DX: I10 Essential (primary) hypertension (principal); F10.10 Alcohol abuse, uncomplicated; E78.5 Hyperlipidemia, unspecified
CPT/HCPCS: 80048; 80061; 82607; 82746

== ENCOUNTER 2025-04-16 12:35 | Outpatient (REF) | payer OTHER, SELFPAY ==
[2025-04-16 16:51] LABS: ALT 41 U/L (10-49); AST 30 U/L (<34); Albumin 4.6 g/dL (3.2-5.0); Alkaline Phosphatase 84 U/L (46-116); Anion Gap 9.5 mmol/L (3-11); BUN 20 mg/dL (9-23); Bilirubin, Total 1.0 mg/dL (0.2-1.2); CO2 24.5 mmol/L (20.0-31.0); Calcium 9.3 mg/dL (8.3-10.6); Chloride 107 mmol/L (98-107); Glucose 94 mg/dL (74-106); Potassium 4.2 mmol/L (3.5-5.1); Sodium 141 mmol/L (136-145); Total Protein 7.2 g/dL (5.7-8.2)
[2025-04-16 17:37] LABS: Abs Immature Grans 0.03 10^3/uL (0.0-0.06); HCT 44.0 % (40.0-50.0); HGB 14.6 g/dL (13.5-17.5); Immature Grans % 0.4 %; MCH 31.2 pg (27.0-33.0); MCHC 33.2 % (32.0-36.0); MCV 94 fL (80-95); MPV 10.8 fL (8.0-11.0); Platelet Count 248 10^3/uL (130-400); RBC 4.68 10^6/uL (4.36-5.78); RDW 12.5 % (11.8-14.1); RDW-SD 43.2 fL; WBC 7.66 10^3/uL (4.4-10.8)
== END 2025-04-16 12:36 | disposition home or self-care (01) ==
LOC: NCHCN 12:35
PROVIDERS: PCP Student in an Organized Health Care Education/Training Program; Visit Provider Student in an Organized Health Care Education/Training Program
DX: I10 Essential (primary) hypertension (principal)
CPT/HCPCS: 80053; 82043; 82570; 85025